=== PATIENT | female | born 1970 | race Two or more races ===

== ENCOUNTER 2018-06-07 08:30 | Outpatient (AMBR) | payer BC, SELFPAY ==
--- NOTE | 2018-05-17 14:29 | PT.OIERPT ---
PT OP Initial Eval Patient Information Visit Reasons: right leg Medical Diagnosis: M79.604 Treatment Dx #1: LBP with radiculopathy Start of Care: 05/17/18 Date of Onset: 5 months Initial Assessment Subjective Pt is 47 yr old female who fell about 5 months ago onto the R side and now c/o R LE pain and weakness. The L/S has started hurting after the fall and she reports 8/10 LBP today. 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 The toes numbers 2-3 are numb and she has R calf numbness. PMH: HTN Imaging: scheduled for pelvic MRI Pt goal: to get rid of the pain Objective Trunk ArOM: B SB 75% with pain R>L Extension: 40% with pain around L5-S1 on R side Flexion: 1 from floor with increased LBP and posterior thigh pain B rotation: full R SLR ROM: 75 deg with posterior knee neural tension and LBP. 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 Pt has neural tension along sciatic pathway and positive SLR testing on R. These findings are consistent with possible lumbar disc irritation with LE radiculopathy. Pt was taught HEP and given materials. PT recommends further diagnostic imaging of L/S such as MRI. Short Term and [facility] Goals 1. Ind with HEP 2. Improved B quad and hamstring strength to 4+/5 3. Pt will improve HH chore tolerance to 30 minutes 4. Decreased muscle spasm and TTP of lumbar paraspinals from mod to min Treatment Plan 1. Manual therapy 2. Therex 3. Modalities as indicated, moist heat pack, ice, electrical stimulation, mechanical traction Frequency and Duration 2x a week for 6 weeks Certification Dates: 05/17/18 to 08/15/18 Office Procedures PT Procedures PT Date of Service: 05/17/18 OP PT Eval Mod Complex 30 minutes: Yes
--- NOTE | 2018-05-27 18:48 | PTNOTE_ITS ---
PT Outpatient Daily Note Date of Service: May 27, 2018 OP Daily Note Visit Reasons: right leg Outpatient Physical Therapy Treatment Date: 05/27/18 Subjective: The R side of the lower back is hurting today after cleaning a house. Objective: See F/S for therex MT: STM to R L5-S1 paraspinals with Graston x10' Mechanical traction to L/S at 25 lbs x7' Assessment: Pt has delayed core activation and R paraspinal TTP that improved after manual therapy today. Plan: Continue per POC Length of Time (minutes) of Treatment: 30 Minutes Office Procedures PT Procedures PT Date of Service: 05/17/18 OP PT Eval Mod Complex 30 minutes: Yes PT Procedures PT Date of Service: 05/27/18 Therapeutic Exercise 15 minutes: Yes Manual Mainframe Systems Engineer 15 minutes: Yes
--- NOTE | 2018-06-01 18:19 | PT.ODAYNRPT ---
PT Outpatient Daily Note Date of Service: June 01, 2018 OP Daily Note Visit Reasons: right leg Outpatient Physical Therapy Treatment Date: 05/27/18 Subjective: The middle down by the tailbone of the lower back is hurting today after cleaning a house. Good relief after last visit of LBP Objective: See F/S for therex MT: STM to R L5-S1 paraspinals with Graston x10' Mechanical traction to L/S at 25 lbs x7' Assessment: Pt has delayed core activation and R paraspinal TTP that improved after manual therapy today. Good response to therapy interventions for relief that lasts a couple days. Plan: Continue per POC Length of Time (minutes) of Treatment: 30 Minutes Office Procedures PT Procedures PT Date of Service: 05/17/18 OP PT Eval Mod Complex 30 minutes: Yes PT Procedures PT Date of Service: 05/27/18 Therapeutic Exercise 15 minutes: Yes Manual Distributor Advertising Material 15 minutes: Yes PT Procedures PT Date of Service: 06/01/18 Therapeutic Exercise 15 minutes: Yes Manual Distributor [employer]vertising Material 15 minutes: Yes
--- NOTE | 2018-06-07 13:22 | PTNOTE_ITS ---
PT Outpatient Daily Note Date of Service: June 07, 2018 OP Daily Note Visit Reasons: right leg Outpatient Physical Therapy Treatment Date: 06/07/18 Subjective: Good relief after last visit of LBP, not hurting much today Objective: See F/S for therex MT: STM to R L5-S1 paraspinals with Graston x10' Mechanical traction to L/S at 25 lbs x7' Assessment: Pt has delayed core activation and R paraspinal TTP that improved after manual therapy today. Good response to therapy interventions for relief that lasts a couple days. Plan: Continue per POC Length of Time (minutes) of Treatment: 30 Minutes Office Procedures PT Procedures PT Date of Service: 05/17/18 OP PT Eval Mod Complex 30 minutes: Yes PT Procedures PT Date of Service: 05/27/18 Therapeutic Exercise 15 minutes: Yes Manual Environmental Engineer Scientist 15 minutes: Yes PT Procedures PT Date of Service: 06/01/18 Therapeutic Exercise 15 minutes: Yes Manual Environmental Engineer Scientist 15 minutes: Yes PT Procedures PT Date of Service: 06/07/18 Therapeutic Exercise 15 minutes: Yes Manual Environmental Engineer Scientist 15 minutes: Yes
== END 2018-06-11 23:59 | disposition home or self-care (01) ==
PROVIDERS: PCP Nurse Practitioner Family; Visit Provider Nurse Practitioner
DX: M54.5 Low back pain (principal); M54.16 Radiculopathy, lumbar region; M79.604 Pain in right leg; R20.0 Anesthesia of skin
CPT/HCPCS: 97110; 97140; 97162

== ENCOUNTER → 2024-05-25 | Outpatient (CLI) | payer BC, MEDICAID, SELFPAY ==
[2024-05-25 14:37] LABS: Basophils # (Auto) 0.1 Thou/mm3 (0.0-0.2); Basophils % (Auto) 1 % (0-2.5); Eosinophils # (Auto) 0.1 Thou/mm3 (0.0-0.5); Eosinophils % (Auto) 3 % (0-10); Hematocrit 36.9 % (36.0-46.0); Hemoglobin 12.5 g/dL (12.0-16.0); Immature Granulocytes % (Auto) 0 % (0-0); Immature Granulocytes Auto 0.01 Thou/mm3 (0.00-0.00); Lymphocytes # (Auto) 2.6 Thou/mm3 (1.0-4.8); Lymphocytes % (Auto) 46 % (10-50); Mean Corpuscular HGB Conc 33.9 g/dl (31.0-37.0); Mean Corpuscular Hemoglobin 28.7 pg (25.0-35.0); Mean Corpuscular Volume 85 fL (80-100); Monocytes # (Auto) 0.5 Thou/mm3 (0.0-0.8); Monocytes % (Auto) 9 % (0-12); Neutrophils # (Auto) 2.3 Thou/mm3 (1.8-7.7); Neutrophils % (Auto) 42 % (37-80); Nucleated Red Blood Cell % 0 /100 WBC (0); Platelet Count 390 Thou/mm3 (140-440); RDW Standard Deviation 42.8 fL (36.4-46.3); Red Blood Count 4.36 Miln/mm3 (4.00-5.20); White Blood Count 5.6 Thou/mm3 (3.6-11.0)
[2024-05-25 14:52] LABS: Partial Thromboplastin Time 25.6 Seconds (22.0-36.0); Prothrombin Time 10.5 Seconds (9.0-12.2)
[2024-05-25 15:02] LABS: Alanine Aminotransferase 42 U/L (10-49); Albumin, Serum 4.5 gm/dL (3.5-5.0); Albumin/Globulin Ratio 1.7 (1.2-2.2); Alkaline Phosphatase 115 U/L (46-116); Anion Gap 7 (7-16); Aspartate Amino Transferase 28 U/L (0-34); BUN/Creatinine Ratio 21 Ratio (12-20); Bilirubin,Total 0.4 mg/dL (0.3-1.2); Blood Urea Nitrogen 17 mg/dL (9-23); Calcium 9.6 mg/dL (8.3-10.6); Calcium (Corrected) 9.6 mg/dL (8.5-10.1); Carbon Dioxide 25.7 mMol/L (20.0-31.0); Chloride 104 mMol/L (98-107); Creatinine (Component) 0.8 mg/dL (0.6-1.3); Globulin 2.6 gm/dL (2.3-3.5); Glucose 88 mg/dL (74-106); Osmolality,Calculated 274 (275-295); Sodium 137 mMol/L (136-145); Total Protein 7.1 gm/dL (5.7-8.2); eGFR > 60 See Note
== END | disposition home or self-care (01) ==
LOC: COPL 13:52
PROVIDERS: PCP Student in an Organized Health Care Education/Training Program; Referring Provider Internal Medicine Gastroenterology; Visit Provider Internal Medicine Gastroenterology
DX: R10.9 Unspecified abdominal pain (principal)
CPT/HCPCS: 36415; 80053; 85025; 85610; 85730

== ENCOUNTER → 2024-08-30 | Outpatient (CLI) | payer BC, SELFPAY ==
[2024-08-30 12:45] LABS: Anion Gap 7 (7-16); BUN/Creatinine Ratio 18 Ratio (12-20); Blood Urea Nitrogen 11 mg/dL (9-23); Calcium 10.1 mg/dL (8.3-10.6); Chloride 109 mMol/L (98-107); Creatinine (Component) 0.6 mg/dL (0.6-1.3); Glucose 94 mg/dL (74-106); Osmolality,Calculated 286 (275-295); Sodium 144 mMol/L (136-145); eGFR > 60 See Note
== END | disposition home or self-care (01) ==
PROVIDERS: PCP Student in an Organized Health Care Education/Training Program; Referring Provider Internal Medicine; Visit Provider Internal Medicine
DX: G45.9 Transient cerebral ischemic attack, unspecified (principal)
CPT/HCPCS: 36415; 80048